=== PATIENT | female | born 1995 | race Caucasian/White ===

== ENCOUNTER → 2020-01-19 | Outpatient (CLI) | payer BC ==
--- NOTE | 2020-01-19 11:30 | US ---
EXAMINATION TYPE: US abdomen comp/pelvis limited DATE OF EXAM: 01/19/2020 COMPARISON: NONE CLINICAL HISTORY: 24-year-old female R10.9 Abdominal Pain. Pain nausea and gas TECHNIQUE: Multiple sonographic images of the abdomen and bladder are obtained. FINDINGS: EXAM MEASUREMENTS: Liver Length: 16.3 cm Gallbladder Wall: .2 cm CBD: .4 cm Spleen: 10.3 cm Right Kidney: 10.8 x 3.4 x 4.1 cm Left Kidney: 9.9 x 3.9 x 3.9 cm Pancreas: Most of the pancreas is visualized and shows no gross abnormality. Liver: wnl Gallbladder: wnl CBD: wnl Spleen: wnl Right Kidney: Mild right-sided pelvicaliectasis. Left Kidney: wnl Upper IVC: wnl Abd Aorta: wnl Bladder: wnl Bilateral Jets Seen Yes IMPRESSION: 1. Mild right-sided pelvicaliectasis probably transient as the right ureteral jet remains visualized in the bladder. Short interval follow-up can be considered to reassess. 2. Otherwise, unremarkable sonographic examination of the abdomen.
== END | disposition home or self-care (01) ==
LOC: RADUSWWP 08:55
PROVIDERS: ATTEND Family Medicine
DX: N28.89 Other specified disorders of kidney and ureter (principal)
CPT/HCPCS: 76700; 76857